=== PATIENT | female | born 1980 | race Two or more races ===

== ENCOUNTER → 2017-08-20 | Outpatient (CLI) | payer MEDICAID ==
[2017-08-20 15:34] LABS: AMPHETAMINES/METAMPHETAMINES NEGATIVE ng/mL (<1000)
[2017-08-25 03:37] LABS: Neisseria gonorrhoeae, NAA Negative (Negative)
== END ==
LOC: LAB 14:42
PROVIDERS: Physician Assistant
DX: R10.9 Unspecified abdominal pain (principal); Z20.2 Contact with and (suspected) exposure to infections with a predominantly sexual mode of transmission; Z79.899 Other long term (current) drug therapy